=== PATIENT | male | born 1975 | race Caucasian/White ===

== ENCOUNTER 2025-02-17 12:48 | Emergency (ER) | payer BC, SELFPAY ==
--- NOTE | 2025-02-17 14:17 | EDRN ---
Jose Angel Wells PA in room w/ pt at this time.
--- NOTE | 2025-02-17 14:19 | ED.GENMED ---
History of Present Illness
General
Chief Complaint: Dizziness
Source: patient
Time Seen by Provider: 02/17/25 14:06
History of Present Illness
History of Present Illness:
49-year-old male with past medical history of MS, migraines presenting to the emergency department for evaluation after he had a syncopal episode while in the shower around 9 AM stating that he was bending over and then stood up, immediately felt a
sudden onset of a head rushing sensation, bright lights, tinnitus and then woke up to his mother knocking on the bathroom door, was able to get up following and felt back to his usual self immediately. Patient states that for an extended period of
time he has been experiencing lightheadedness but has never syncopized from this. He reports that he will often have lower blood pressures noting that at times his systolic blood pressure will be 90 or lower. He was also told about 1 year ago he
has likely sleep apnea and during this test was also found to have a heart rate in the high 30s. Patient did see cardiology for palpitations around the beginning of and while he states he is unsure as to what exact testing he had done he
notes that there were no abnormalities. He follows with Dr. Luciano. At present time patient is otherwise asymptomatic.
Past History
Past History
ED Past Medical History: Other (MS)
ED Past Surgical History: Tonsilectomy and Other (vein stripping)
Social History
Tobacco: Non-smoker
Alcohol: Occasional
Drug: None
Personal: Single
Living: with family
Review of Systems
Review of Systems
All Other Systems: ROS reviewed and negative except as documented in HPI and ROS
Phy Exam
Physical Exam
Physical Exam:
GENERAL: Alert , in no apparent distress
HEAD: Normocephalic atraumatic
EYE: conjunctiva clear
NECK: Supple, no midline tenderness
ENT: o/p clr, mmm.
CARDIAC: Regular rate and rhythm, no murmur
LUNGS: Clear breath sounds bilaterally, no acute respiratory distress, no wheezes/rales/rhonchi
NEUROLOGICAL: Alert and oriented
SKIN: Warm and dry, skin intact.
MUSCULOSKELETAL: well perfused.
PSYCH: Normal and appropriate interaction.
Scores
Heart Failure Risk
Heart Failure Risk Score: Not Applicable
Heart Score for Chest Pain Patients
STEMI patient?: Not applicable
Withdrawal Assessment of Alcohol
Withdrawal Assessment Completed?: Not applicable
Course
Orders/Labs/Results
Orders:
Orders
02/17/25 12:52
ECG [Electrocardiogram (*1)] Urgent
Reason for Study: Syncope
EKG- Treatment ONCE
02/17/25 14:18
Orthostatic VS- Treatment ONCE
02/17/25 14:29
0.9% Sodium Chloride 1000 ml [Nss] 1,000 ml IV BOLUS
02/17/25 14:39
Complete Blood Count/With Diff Urgent
Comprehensive Metabolic Panel Urgent
Abnormal Lab Results
02/17/25
14:39
RDW 14.6 H %
(11.5-14.5)
Chloride 110 H mmol/L
(98-107)
Glucose 106 H mg/dl
(70-99)
02/17/25 14:39
02/17/25 14:39
Vital Signs
Initial and Last Documented VS:
Initial Vital Signs
Temp Pulse Resp Pulse Ox
99.0 F 83 18 98
02/17/25 12:49 02/17/25 12:49 02/17/25 12:49 02/17/25 12:49
Last Documented Vital Signs
Temp Pulse Resp BP Pulse Ox
99.0 F 64 21 131/71 97
02/17/25 12:49 02/17/25 16:00 02/17/25 16:00 02/17/25 16:00 02/17/25 16:00
MDM/Problems Addressed
Differential Diagnosis Includes:
Orthostasis
Vagal event
Cardiac arrhythmia/dysrhythmia
Valvular dysfunction
Electrolyte imbalance
Anemia
Medication interaction
MDM/Problems Addressed:
49-year-old male presenting to the ER for evaluation following syncopal event while in the shower, event occurred immediately after patient went from a bending over position to standing upright and had prodromal symptoms. I suspect orthostasis is
most likely. Patient states following the blood pressure with pressures ranging from 90-105 systolically. Patient reports he is asymptomatic at this present time. EKG done in triage is normal sinus rhythm without any ectopy or arrhythmia. Doubt
any emergent pathologies but given patient has reoccurring lightheadedness it would likely be beneficial for him to follow-up with cardiology to wear a Holter monitor as it was known on a previous evaluation that patient did have heart rates
dropping into upper 30s/low 40s.
*Pulse Oximetry
SaO2: 98
Oxygen Mode of Delivery: Room air
Patient hypoxic: no
*EKG
Heart Rate: 72
Rate: normal
Rhythm: sinus
[place]: normal axis
Ischemia: no ischemia
*Fruit Or Nut Farmworker Interpretation
Rate: normal
Rhythm: sinus
*Critical Care Note
Total Time (30-74mins, 75-104mins- exclusive of procedures): Not Applicable
Patient Management
Escalation/DeEscalation of care consider admission/obs:
Patient remains hemodynamically stable. Continues to feel well, labs reassuring. EKG unremarkable. Will follow-up with primary care provider. Discussed return precautions. Stable for discharge.
ED Attending Note
-
Portions of this chart may have been created with voice recognition software.� Occasional wrong word or��sound alike� substitutions may have occurred due to the inherent limitations of voice recognition software.
Discharge Plan
Departure
Patient Disposition: Home (Routine Discharge)
Date of Disposition: 02/17/25
Time of Disposition: 15:50
Patient with high blood pressure during this ER visit?: No
Discharge Problem:
Orthostasis
Instructions: Syncope (fainting) (DC)
Prescriptions:
No Action
Adreno-Plus
2 tab PO DAILY
Ashwaganha
1 tab PO BID
Yolo Oil
2 tab PO DAILY
Rhodiola Rosea
2 tab PO DAILY
Symotix
1 tab PO DAILY
Travacor
1 tab PO HS
Referrals:
Rashard,JULY Spaulding [Family Provider, Internal Medicine]
Interventions
Interventions:
*Risk Screen - Suicide Last Done: 02/17/25 14:31
*General Assessment Last Done: 02/17/25 14:31
*Neglect/Abuse Screening Last Done: 02/17/25 14:31
*ED- Fall Risk Assessment Last Done: 02/17/25 14:31
*ED COVID-19 Vaccine History Last Done: 02/17/25 14:31
*Nursing Disposition Last Done: 02/17/25 16:16
ED- Neurological Assessment Last Done: 02/17/25 14:25
ED- Cardiac Assessment Last Done: 02/17/25 14:25
ED Swallowing Screen Last Done: 02/17/25 14:25
Discharge Date and Time
Discharge Date/Time: 02/17/25 16:17
Print Language: POLISH
[2025-02-17 14:20] VITALS: BP 110/77
[2025-02-17 14:22] VITALS: BP 104/73
[2025-02-17 14:24] VITALS: BP 93/66
[2025-02-17 14:30] VITALS: BP 104/73; BP 110/77; BP 93/66; PULSE 106; PULSE 65; PULSE 78
[2025-02-17 14:31] VITALS: BMI 27.6
--- NOTE | 2025-02-17 14:46 | EDRN ---
Jose Angel DUQUE texted w/ orthostatic results.
[2025-02-17 14:51] LABS: Hematocrit 43.5 % (39.0-52.0); Hemoglobin 15.1 g/dL (13.0-18.0); Mean Corp Hgb Conc. 34.7 g/dL (33.0-37.0); Mean Corpuscular Volume 88.2 fL (80.0-94.0); Nucleated Red Blood Cells % 0 % (-); Platelet Count 191 10^3/uL (130-400); Red Cell Dist. Width 14.6 % (11.5-14.5)
[2025-02-17 15:00] VITALS: BP 96/75
[2025-02-17 15:10] LABS: ALT (SGPT) 21 U/L (0-50); AST (SGOT) 20 U/L (17-59); Alkaline Phosphatase 46 U/L (38-126); Blood Urea Nitrogen 18 mg/dl (9-20); Calcium 9.5 mg/dl (8.4-10.2); Carbon Dioxide 25 mmol/L (22-30); Chloride 110 mmol/L (98-107); Estimated Creatinine Clearance 104 ml/min; Glucose 106 mg/dl (70-99); Potassium 4.6 mmol/L (3.5-5.1); Sodium 140 mmol/L (135-145); eGFR > 60.00
[2025-02-17 15:11] LABS: Albumin 4.4 g/dl (3.5-5.0); Total Protein 6.7 g/dl (6.3-8.2)
[2025-02-17] MEDS: NSS 1000 IV (15:11)
[2025-02-17 16:00] VITALS: BP 131/71
== END 2025-02-17 16:17 | disposition home or self-care (01) ==
LOC: EMR 12:48
PROVIDERS: Physician Assistant Medical; EMERGENCY PHYSICIAN Emergency Medicine; FAMILY PHYSICIAN Nurse Practitioner Adult Health; REFERRING PHYSICIAN Psychiatry & Neurology Neurology
DX: R55 Syncope and collapse (principal)
CPT/HCPCS: 99284; 96360; 80053; 85025; 93005

== ENCOUNTER → 2025-04-26 09:04 | Outpatient (REF) | payer BC, SELFPAY | LOC: HWRCS 09:04 | PROVIDERS: ATTENDING PHYSICIAN Nurse Practitioner; FAMILY PHYSICIAN Nurse Practitioner Adult Health | DX: Z87.898 Personal history of other specified conditions (principal); R42 Dizziness and giddiness | CPT/HCPCS: 93306 ==

== ENCOUNTER → 2025-05-05 11:15 | Outpatient (REF) | payer BC, SELFPAY | LOC: RAD 11:15 | PROVIDERS: ATTENDING PHYSICIAN Internal Medicine; FAMILY PHYSICIAN Nurse Practitioner Adult Health | DX: I77.810 Thoracic aortic ectasia (principal) | CPT/HCPCS: 71275; Q9967 ==